=== PATIENT | female | born 1945 | race Caucasian/White ===

== ENCOUNTER → 2020-01-07 08:23 | Outpatient (CLI) | payer MEDICARE, OTHER, SELFPAY ==
[2020-01-07 09:59] LABS: Alanine Aminotransferase 15 IU/L (<35); Albumin 4.5 g/dL (3.5-5.0); Albumin Globulin Ratio 1.6 (1.0-2.8); Alkaline Phosphatase 78 U/L (38-126); Aspartate Aminotransferase 29 IU/L (14-36); BUN Creatinine Ratio 23.3 (6-22); Bilirubin Total 0.7 mg/dL (0.2-1.3); Blood Urea Nitrogen 21 mg/dL (7-17); Calcium 10.1 mg/dL (8.4-10.2); Carbon Dioxide 24 mmol/L (22-32); Chloride 107 mmol/L (98-107); Cholesterol 208 mg/dL (140-199); Estimated Glomerular Filt Rate > 60.0 mL/min (>60); Globulin 2.8 g/dL (1.7-4.1); Glucose 104 mg/dL (80-110); HDL Cholesterol 80 mg/dL (40-60); HEMOLYSIS < 15 (0-50); LDL Cholesterol Calculated 109 mg/dL (<100); Potassium 4.4 mmol/L (3.4-5.1); Sodium 136 mmol/L (137-145); Total Protein 7.3 g/dL (6.3-8.2); Triglycerides 97 mg/dL (35-150)
== END ==
PROVIDERS: PCP Family Medicine; Referring Provider Family Medicine; Visit Provider Family Medicine
DX: Z13.1 Encounter for screening for diabetes mellitus (principal); Z13.220 Encounter for screening for lipoid disorders
CPT/HCPCS: 36415; 80053; 80061

== ENCOUNTER → 2020-01-21 13:10 | Outpatient (CLI) | payer MEDICARE, OTHER, SELFPAY ==
--- NOTE | 2020-01-21 13:13 | DI.RAD.S_ITS ---
PROCEDURE: XR DEXA AXIAL SKELETON INDICATIONS: postmenopausal female COMPARISON: None. FINDINGS: This blank DEXA report has been sent in error by the PACS system. The correct and complete report will be forthcoming in 1-2 days. Thank you for your patience and understanding. Dictated by: Zoe Lin MD, PhD on 01/21/2020 at 15:01 Approved by: Zoe Lin MD, PhD on 01/21/2020 at 15:02
== END ==
PROVIDERS: PCP Family Medicine; Referring Provider Family Medicine; Visit Provider Family Medicine
DX: M81.0 Age-related osteoporosis without current pathological fracture (principal); Z78.0 Asymptomatic menopausal state
CPT/HCPCS: 77080

== ENCOUNTER → 2022-03-21 12:26 | Outpatient (CLI) | payer MEDICARE, OTHER, SELFPAY ==
[2022-03-21 13:28] LABS: Add Manual Diff / Slide Review NO; Basophils Absolute Auto 0 /uL (0-100); Eosinophils Absolute Auto 0 /uL (0-450); Eosinophils Percent Auto 0.8 % (2-4); Hematocrit 43.7 % (36-46); Hemoglobin 14.7 g/dL (12.0-16.0); Lymphocytes Absolute Auto 1600 /uL (1100-4500); Lymphocytes Percent Auto 30.6 % (25-40); Mean Corpuscular HGB Conc 33.6 % (30-36); Mean Corpuscular Hemoglobin 30.5 PG (26-34); Mean Corpuscular Volume 90.8 fL (80-100); Monocytes Absolute Auto 400 /uL (0-900); Monocytes Percent Auto 7.4 % (3-14); Neutrophils Absolute Auto 3100 /uL (1500-7000); Neutrophils Percent Auto 60.2 % (50-75); Platelet Count 208 X10^3/uL (150-400); Red Blood Cell Count 4.81 X10^6/uL (4.0-5.2); Red Cell Distribution Width 12.8 % (11.6-14.8); White Blood Cell Count 5.1 X10^3/uL (4.5-11.0)
[2022-03-21 13:39] LABS: Alanine Aminotransferase 17 IU/L (<35); Albumin 4.7 g/dL (3.5-5.0); Albumin Globulin Ratio 1.3 (1.0-2.8); Alkaline Phosphatase 78 U/L (38-126); Aspartate Aminotransferase 35 IU/L (14-36); BUN Creatinine Ratio 31.4 (6-22); Bilirubin Total 0.6 mg/dL (0.2-1.3); Blood Urea Nitrogen 27 mg/dL (7-17); Carbon Dioxide 28 mmol/L (22-32); Chloride 101 mmol/L (98-107); Estimated Glomerular Filt Rate > 60 mL/min (>60); Globulin 3.5 g/dL (1.7-4.1); Glucose 97 mg/dL (80-110); HEMOLYSIS 17 (0-50); Potassium 4.6 mmol/L (3.4-5.1); Sodium 138 mmol/L (137-145); Total Protein 8.2 g/dL (6.3-8.2)
[2022-03-21 16:07] LABS: Vitamin D 25 Hydroxy (D3) 46.4 ng/mL (30.0-100.0)
== END ==
PROVIDERS: PCP Family Medicine; Referring Provider Family Medicine; Visit Provider Family Medicine
DX: M81.0 Age-related osteoporosis without current pathological fracture (principal)
CPT/HCPCS: 36415; 80053; 82306; 85025

== ENCOUNTER → 2023-04-30 12:38 | Outpatient (CLI) | payer MEDICARE, OTHER, SELFPAY ==
--- NOTE | 2023-04-30 12:40 | DI.RAD.S_ITS ---
Bone Density Report Name: JIMMY TOWNSEND Age: 78 Sex: Female Ethnicity: White Date of : 1945 Indication: postmenopausal osteoporosis; Referring Provider: UNSPECIFIED Study: Bone densitometry was performed. Exam Date: April 30, 2023 Accession number: [id number] Bone Density: Region BMD T-score Z-score Classification AP Spine(L1-L4) 0.819 -2.1 0.4 Osteopenia Femoral Neck (Left) 0.509 -3.1 -0.9 Osteoporosis Total Hip (Left) 0.610 -2.7 -0.9 Osteoporosis Femoral Neck (Right) 0.549 -2.7 -0.6 Osteoporosis Total Hip (Right) 0.641 -2.5 -0.6 Osteoporosis Total Hip Mean 0.626 -2.6 -0.8 Osteoporosis World Health Organization criteria for BMD impression classify patients as: Normal (T-score at or above -1.0), Osteopenia (T-score between -1.0 and -2.5), or Osteoporosis (T-score at or below -2.5). 10-year Fracture Risk: FRAX not reported because: Some T-score for Spine Total or Hip Total or Femoral Neck at or below -2.5 Previous Exams: -- Region Exam Age BMD T-score BMD Change BMD Change Date g/cm2 vs Baseline vs Previous -- AP Spine (L1-L4) 04/30/2023 78 0.819 -2.1 -0.016 (-1.9%)# -0.016 (-1.9%)# 01/21/2020 74 0.835 -1.9 Total Hip(Left) 04/30/2023 78 0.610 -2.7 -0.055 (-8.2%)# -0.055 (-8.2%)# 01/21/2020 74 0.664 -2.3 Total Hip(Right) 04/30/2023 78 0.641 -2.5 -0.001 (-0.2%)# -0.001 (-0.2%)# 01/21/2020 74 0.643 -2.5 -- *Denotes significance at 95% confidence level, LSC for AP Spine = 0.022 g/cm2, LSC for Total Hip = 0.027 g/cm2 # Denotes dissimilar scan types or analysis methods Impression: The patient has osteoporosis, based on the Left Femoral Neck T-score. No significant bone loss was observed. Discussion: INCREASED RISK OF FRACTURE. BONE DENSITY IS UNDESIRABLY LOW AT ONE OR MORE SKELETAL SITES, CONSISTENT WITH POSTMENOPAUSAL OSTEOPOROSIS. This patient's lowest T-score meets the World Health Organization's (WHO) criteria for osteoporosis at one or more sites (T-score -2.5 or below). In untreated patients, the risk of osteoporotic fracture increases approximately two-fold for each 1.0 SD decrease in T-score. Low bone density is not the only risk factor for fracture; also consider factors such as patient's age, frailty or poor health, risk of falling, risk of injury, previous osteoporotic fracture, family history of osteoporosis, cigarette smoking, low body weight, etc. Not everyone with low bone mineral density has osteoporosis; osteomalacia and other metabolic bone disorders should also be considered. Patients who have osteoporosis should be evaluated for specific diseases and conditions (secondary causes) that may cause or contribute to bone loss. The [place] [employer]ocrinologists (AACE) and National Osteoporosis Foundation (NOF) recommend pharmacologic intervention for all postmenopausal women whose T-score is in this range. The patient should follow a healthful lifestyle (good nutrition with adequate calcium and vitamin D, and appropriate weight-bearing exercise). Follow-Up: Consider a repeat BMD and Vertebral Fracture Assessment (VFA) exam in 2 years or sooner if medically necessary, to reassess this patient's status. Reported by: LIAN MCCOY M.D. on 04/30/2023 1:12:00 PM.
== END ==
PROVIDERS: PCP Student in an Organized Health Care Education/Training Program; Referring Provider Student in an Organized Health Care Education/Training Program; Visit Provider Student in an Organized Health Care Education/Training Program
DX: M81.0 Age-related osteoporosis without current pathological fracture (principal)
CPT/HCPCS: 77080

== ENCOUNTER → 2024-05-27 11:17 | Outpatient (CLI) | payer MEDICARE, OTHER, SELFPAY ==
--- NOTE | 2024-05-27 11:17 | DI.MG.S_ITS ---
BILATERAL DIGITAL SCREENING MAMMOGRAM 3D/2D WITH CAD: 05/27/2024 CLINICAL: Routine screening. Family history of breast cancer. Comparison is made to exams dated: 05/15/2023 mammogram, 01/16/2022 mammogram, and 12/28/2020 mammogram - outside location. The breasts are heterogeneously dense, which may obscure small masses (category c / 51-75% glandular tissue). Current study was also evaluated with a Computer Aided Detection (CAD) system. There are benign vascular calcifications in both breasts. No significant masses, calcifications, or other findings are seen in either breast. There has been no significant interval change. IMPRESSION: BENIGN There is no mammographic evidence of malignancy. A 1 year screening mammogram is recommended. Based on the Tyrer Cuzick model (a risk assessment model) the patient's lifetime risk is 8.4% and her 10 year risk is 0.0%. According to the ACR, ACS, and NCCN guidelines, an annual breast MRI exam along with mammogram is recommended if the patient's lifetime risk is 20% or greater. This exam was interpreted at Station ID: [id number]. NOTE: For mammograms, a report in lay terms will be sent to the patient. Approximately 15% of breast malignancies will not be visualized mammographically. In the management of a palpable breast mass, a negative mammogram must not discourage biopsy of a clinically suspicious lesion. Electronically Signed By: Jessica real/aaron:05/27/2024 12:13:36 letter sent: Normal Exam ACR BI-RADS Category 2: Benign
== END ==
PROVIDERS: PCP Student in an Organized Health Care Education/Training Program; Referring Provider Student in an Organized Health Care Education/Training Program; Visit Provider Student in an Organized Health Care Education/Training Program
DX: Z12.31 Encounter for screening mammogram for malignant neoplasm of breast (principal); Z80.3 Family history of malignant neoplasm of breast; R92.323 Mammographic fibroglandular density, bilateral breasts
CPT/HCPCS: 77063; 77067

== ENCOUNTER → 2024-06-02 09:33 | Outpatient (CLI) | payer MEDICARE, OTHER, SELFPAY ==
[2024-06-02 10:26] LABS: Add Manual Diff / Slide Review NO; Basophils Absolute Auto 0 /uL (0-100); Basophils Percent Auto 0.9 % (0-2); Eosinophils Absolute Auto 100 /uL (0-450); Eosinophils Percent Auto 1.5 % (2-4); Hematocrit 43.3 % (36-46); Hemoglobin 14.3 g/dL (12.0-16.0); Lymphocytes Absolute Auto 1700 /uL (1100-4500); Lymphocytes Percent Auto 37.8 % (25-40); Mean Corpuscular Hemoglobin 30.4 PG (26-34); Mean Corpuscular Volume 91.9 fL (80-100); Monocytes Absolute Auto 400 /uL (0-900); Monocytes Percent Auto 9.6 % (3-14); Neutrophils Absolute Auto 2300 /uL (1500-7000); Neutrophils Percent Auto 50.2 % (50-75); Platelet Count 209 X10^3/uL (150-400); Red Blood Cell Count 4.71 X10^6/uL (4.0-5.2); Red Cell Distribution Width 13.2 % (11.6-14.8); White Blood Cell Count 4.6 X10^3/uL (4.5-11.0)
[2024-06-02 11:09] LABS: Alanine Aminotransferase 19 IU/L (<35); Albumin 4.4 g/dL (3.5-5.0); Albumin Globulin Ratio 1.6 (1.0-2.8); Alkaline Phosphatase 86 U/L (38-126); Aspartate Aminotransferase 33 IU/L (14-36); BUN Creatinine Ratio 18.7 (6-22); Blood Urea Nitrogen 17 mg/dL (7-17); Calcium 10.3 mg/dL (8.4-10.2); Carbon Dioxide 28 mmol/L (22-32); Chloride 105 mmol/L (98-107); Cholesterol 211 mg/dL (140-199); Estimated Glomerular Filt Rate > 60 mL/min (>60); Globulin 2.7 g/dL (1.7-4.1); Glucose 88 mg/dL (80-110); HDL Cholesterol 81 mg/dL (40-60); HEMOLYSIS < 15 (0-50); LDL Cholesterol Calculated 112 mg/dL (<100); Potassium 4.6 mmol/L (3.4-5.1); Sodium 138 mmol/L (137-145); Total Protein 7.1 g/dL (6.3-8.2); Triglycerides 91 mg/dL (35-150)
== END ==
PROVIDERS: PCP Student in an Organized Health Care Education/Training Program; Referring Provider Student in an Organized Health Care Education/Training Program; Visit Provider Student in an Organized Health Care Education/Training Program
DX: E78.5 Hyperlipidemia, unspecified (principal)
CPT/HCPCS: 36415; 80053; 80061; 85025

== ENCOUNTER → 2024-06-10 11:45 | Outpatient (CLI) | payer MEDICARE, OTHER, SELFPAY ==
--- NOTE | 2024-06-10 11:48 | DI.RAD.S_ITS ---
PROCEDURE: XR DEXA AXIAL SKELETON INDICATIONS: Osteoporosis COMPARISON: [facility], CR, XR DEXA AXIAL SKELETON, 04/30/2023, 12:57. [facility], CR, XR DEXA AXIAL SKELETON, 01/21/2020, 13:36. FINDINGS: Lumbar Spine: Bone mineral density 0.832 g/cm2, T score -2, previously -2.1. Left Hip: Bone mineral density 0.612 g/cm2, T score -2.7, unchanged. Left Femoral Neck: Bone mineral density 0.499 g/cm2, T score -3.2, previously -3.1. Right Hip: Bone mineral density 0.626 g/cm2, T score -2.6, previously -2.5. Right Femoral Neck: Bone mineral density 0.486 g/cm2, T score -3.3, previously -2.7. Fracture Risk Calculation (when applicable): Not reported due to osteoporosis diagnosis. (T score greater or equal to -1.0 to: NORMAL) (T score from -1.1 to -2.4: OSTEOPENIA) (T score less than or equal to -2.5: OSTEOPOROSIS) IMPRESSION: Osteoporosis. Follow-up guidelines as follows: Osteoporosis: Consider a repeat DEXA and Vertebral Fracture Assessment (VFA) exam in 2 years or sooner if medically necessary, to reassess this patient's status. Osteopenia: Consider a repeat DEXA in 2-3 years to reassess this patient's status, or if there is a new clinical indication. Normal: Consider a repeat DEXA in 5 years or sooner, or if there is a new clinical indication. All treatment decisions require clinical judgment and consideration of individual patient factors, including patient preferences, comorbidities, previous drug use, risk factors not captured in the FRAX model (e.g., frailty, falls, vitamin D deficiency, increased bone turnover, interval significant decline in bone density ) and possible under- or over-estimation of fracture risk by FRAX. In addition, the NOF Guide recommends that FDA-approved medical therapies be considered in postmenopausal women and men age >= 50 years with a: * Hip or vertebral (clinical or morphometric) fracture * T-score of <=-2.5 at the spine or hip * Ten-year fracture probability by FRAX of >= 3% for hip fracture or >=20% for major osteoporotic fracture. People with diagnosed cases of osteoporosis or at high risk for fracture should have regular bone mineral density tests. For patients eligible for Medicare, routine testing is allowed once every 2 years. The testing frequency can be increased to one year for patients who have rapidly progressing disease, those who are receiving or discontinuing medical therapy to restore bone mass, or have additional risk factors. Dictated by: Petr Potter M.D. on 06/10/2024 at 14:01 Approved by: Petr Potter M.D. on 06/10/2024 at 14:02
== END ==
PROVIDERS: PCP Student in an Organized Health Care Education/Training Program; Referring Provider Student in an Organized Health Care Education/Training Program; Visit Provider Student in an Organized Health Care Education/Training Program
DX: M81.0 Age-related osteoporosis without current pathological fracture (principal); Z12.11 Encounter for screening for malignant neoplasm of colon
CPT/HCPCS: 77080; 82274

== ENCOUNTER → 2024-06-10 11:52 | Outpatient (CLI) | payer MEDICARE, OTHER, SELFPAY | LOC: LAB 11:54 | PROVIDERS: PCP Student in an Organized Health Care Education/Training Program; Referring Provider Student in an Organized Health Care Education/Training Program; Visit Provider Student in an Organized Health Care Education/Training Program | DX: Z12.11 Encounter for screening for malignant neoplasm of colon (principal) | CPT/HCPCS: 82274 ==

== ENCOUNTER → 2024-06-18 13:57 | Outpatient (CLI) | payer MEDICARE, OTHER, SELFPAY ==
[2024-06-20 07:07] LABS: Parathyroid Hormone, Intact 53 pg/mL (15-65)
== END ==
PROVIDERS: PCP Student in an Organized Health Care Education/Training Program; Referring Provider Student in an Organized Health Care Education/Training Program; Visit Provider Student in an Organized Health Care Education/Training Program
DX: E83.52 Hypercalcemia (principal)
CPT/HCPCS: 36415; 82310; 83970

== ENCOUNTER → 2024-12-31 13:44 | Outpatient (CLI) | payer MEDICARE, OTHER, SELFPAY ==
--- NOTE | 2024-12-31 13:46 | DI.MRI.S_ITS ---
PROCEDURE: MR WRIST RT WO/W CON INDICATIONS: eval for mass TECHNIQUE: Multisequence multiplanar MRI of the wrist with and without intravenous contrast. COMPARISON: [facility], CR, XR WRIST RT MIN 3V, 12/29/2024, 10:26. FINDINGS: Image quality: Excellent. Bones and cartilage: Subchondral cystic changes and subchondral edema are seen at the proximal ulnar aspect of the lunate, compatible with degenerative changes or repetitive impaction injury. Neutral ulnar variance. Circumscribed [id number] cystic lesion at the distal ulnar aspect of the radius corresponds to the lucent lesion on prior CT and is consistent with degenerative subchondral cystic changes or intraosseous ganglion. Carpal bones are normally aligned. No acute trabecular bone injury or fracture. No suspicious marrow replacing mass. Carpal ligaments: The scapholunate and lunotriquetral ligaments appear intact. On sagittal images, the pisohamate ligament appears intact. Triangular fibrocartilage complex: Full-thickness defect in the central triangular fibrocartilage disc. Tendons and soft tissues: No enhancing solid soft tissue mass. The median nerve appears thickened with fiber intense T2-weighted signal, which can be seen in the setting of median neuritis/carpal tunnel syndrome. Mild tenosynovitis of the flexor pollicis longus tendon proximal to the carpal tunnel. Mild volar bowing of the flexor retinaculum. The ulnar nerve appears normal within Guyon's canal. Partial tearing of the extensor carpi ulnaris tendon at the level of the ulnar styloid with mild superimposed tenosynovitis and chronic tendinosis. The remaining extensor tendon compartments demonstrate normal morphology, without pathologic tendon sheath fluid. Ganglion cyst at the volar radial aspect of the wrist measures up to 4 mm in maximum dimension. IMPRESSION: 1. Intraosseous cystic lesion at the dorsal ulnar aspect of the distal radius is consistent with degenerative subchondral cystic changes or benign intraosseous ganglion. This corresponds with the lucent lesion on recent wrist radiographs. No suspicious osseous or soft tissue mass. 2. Subchondral cystic changes and subchondral edema at the proximal ulnar aspect of the lunate may be related to degenerative changes or repetitive impaction. Neutral ulnar variance. 3. Partial intrasubstance tearing of the extensor carpi ulnaris tendon at the level of the ulnar styloid with superimposed tenosynovitis and chronic tendinosis. 4. Full-thickness tearing of the central triangular fibrocartilage disc. Thickening of the median nerve can be seen in the setting of median neuritis/carpal tunnel syndrome. Recommend correlation with neurologic exam findings. Approved by: Hiram Lockhart M.D. on 12/31/2024 at 20:23
== END ==
PROVIDERS: PCP Student in an Organized Health Care Education/Training Program; Referring Provider Orthopaedic Surgery; Visit Provider Orthopaedic Surgery
DX: G56.01 Carpal tunnel syndrome, right upper limb (principal); S66.811A Strain of other specified muscles, fascia and tendons at wrist and hand level, right hand, initial encounter; S63.591A Other specified sprain of right wrist, initial encounter; M25.431 Effusion, right wrist; M89.9 Disorder of bone, unspecified; M65.931 Unspecified synovitis and tenosynovitis, right forearm
CPT/HCPCS: 73223; A9579

== ENCOUNTER → 2025-03-17 12:45 | Outpatient (CLI) | payer MEDICARE, OTHER, SELFPAY | LOC: PHYS 12:47 | PROVIDERS: Family Provider Student in an Organized Health Care Education/Training Program; PCP Student in an Organized Health Care Education/Training Program; Referring Provider Student in an Organized Health Care Education/Training Program; Visit Provider Student in an Organized Health Care Education/Training Program | DX: G56.01 Carpal tunnel syndrome, right upper limb (principal) | CPT/HCPCS: 95886; 95910 ==

== ENCOUNTER 2025-04-14 06:14 | Day surgery (SDC) | payer MEDICARE, OTHER, SELFPAY ==
[2025-04-14] MEDS: LACTATED RINGERS 1,000 ML 42 ML IV ×2 (06:30→09:49)
[2025-04-14 06:46] VITALS: BP 178/84; PULSE 74; RESP 16; TEMP 36.6; O2SAT 98
--- NOTE | 2025-04-14 06:59 | P.OP.PRE_ITS ---
Pre-operative Note
--- NOTE | 2025-04-14 06:59 | PM.PREOP ---
Pre-operative Note Interval Note History & Physical reviewed/Exam performed by Physician: Yes Changes to H&P: No
--- NOTE | 2025-04-14 09:32 | SUR.OPER ---
Supine on padded OR bed, head on pillow, arms secured on padded arm boards at <90 degrees abduction, legs uncrossed, safety belt at thigh, tape over blanket over lower legs.
[2025-04-14 09:40] VITALS: BP 109/54; PULSE 72; RESP 16; TEMP 36.9; O2SAT 94
[2025-04-14 09:41] VITALS: BP 108/56; PULSE 71; RESP 16; O2SAT 94
[2025-04-14 09:47] VITALS: BP 118/60; PULSE 72; RESP 16; O2SAT 95
--- NOTE | 2025-04-14 09:48 | P.OP_ITS ---
Operative Date/Time/Diagnoses
--- NOTE | 2025-04-14 09:48 | PM.OP.1 ---
Operative Date/Time/Diagnoses Date of procedure: 04/14/25 Time of procedure: 09:00 Pre-op diagnosis: RIGHT Carpal Tunnel Syndrome Post-op diagnosis: same Procedure & Clinicians Procedure: RIGHT Carpal Tunnel Release Same procedure(s) as scheduled: Yes Surgeon: Deandre Olivera Assisted?: Yes [employer] Specialist: Kylee Cunningham Anesthesia Type: MAC +/- Operative Notes Findings: Laterality: Right Preoperative diagnosis: Carpal Tunnel Syndrome Procedure performed: Carpal Tunnel Release, Open Postoperative diagnosis: Same Primary Surgeon: Deandre Olivera MD Secondary Surgeon: None Anesthesia: General EBL: 5 ml Tourniquet: 22 minutes @ 250 mmHg Indication For Surgery: Patient presented with signs and symptoms of carpal tunnel syndrome. Conservative treatment did not result in adequate symptom improvement. The risks, benefits, and alternatives were discussed. Risks include pain, bleeding, infection, damage to nearby structures, pillar pain, wound healing complications, thumb weakness, numbness, lack of symptom relief, need for further surgery, DVT, PE, stroke, and . Written consent was obtained. Operative Findings: Thickened transverse carpal ligament was released. No carpal tunnel masses. Procedure in Detail: The patient was met in the pre-operative hold area. Consent was verified and operative extremity was signed. Local anesthesia was injected. The patient then met with anesthesia and was brought back to the operating room. The patient was placed supine on the operating table. Anesthetic was administered. The extremity was then prepped and draped in the usual sterile fashion. A timeout was performed per protocol. All were in agreement and we proceeded. The quality of anesthetic was tested with an adson forceps. A 3cm longitudinal incision was made in line with the ulnar border of the ring finger starting at Sloan's Cardinal line distally. This was just radial to the hook of the hamate. Sharp dissection was brought down through the palmar fascia. Retractors were placed. The transverse carpal ligament was identified and a knife was used to incise it longitudinally until fat was seen distally in the palm. Long handled Metzenbaum scissors were then used to create a pocket just superficial to the transverse carpal ligament and a retractor was placed. The scissors were then placed deep to the ligament to bluntly separate the contents of the canal from ligament. I then pointed the tips of the scissors ulnarly and completed the release 2 cm into the antebrachial fascia. A freer elevator was used to confirm complete release both proximally and distally. The wound was then irrigated copiously and closed with 4-0 nylon in a horizontal mattress configuration. A sterile bulky dressing was applied. Postoperative Plan: Same day surgery discharge Leave bulky dressing on until follow up No use of operative hand 2 week follow up for suture removal. No manual labor 6 week follow up with anticipated release to full activity Deandre Olivera MD Applied: none Estimated Blood Loss (mL): 5 Blood products transfused: none Tourniquet time (min): 22 Complications: none Post-operative Condition: stable Disposition: PACU
[2025-04-14 09:54] VITALS: BP 119/63; PULSE 67; RESP 16; O2SAT 98
== END 2025-04-14 10:30 | disposition home or self-care (01) ==
PROVIDERS: Family Provider Student in an Organized Health Care Education/Training Program; PCP Student in an Organized Health Care Education/Training Program; Referring Provider Orthopaedic Surgery; Visit Provider Orthopaedic Surgery
PROC: (CPT 64721; principal; 2025-04-14 07:45)
DX: G56.01 Carpal tunnel syndrome, right upper limb (principal)
CPT/HCPCS: 64721; J0689; J1100; J2405; J2704; J3010; J7120